=== PATIENT | male | born 1950 | race Caucasian/White ===

== ENCOUNTER 2019-08-05 18:45 | Inpatient (IN) | payer MEDICARE ==
[~2019-08-05] VITALS: Ht 170.2 cm; Wt 77.1 kg
[2019-08-05] MEDS ORDERED: IV NS 0.9% 1,000 ML BAG IV ONE ×2 (19:00→20:00)
[2019-08-05] MEDS ORDERED: ONDANSETRON HCL/PF 4 MG/2 ML VIAL IVP ONE (19:00)
[2019-08-05] MEDS ORDERED: ONDANSETRON HCL/PF 4 MG/2 ML VIAL ONE ×2 (19:07→23:58)
[2019-08-05 19:18] LABS: BASOPHILS # (AUTO) 0.1 /CMM (0.0-0.2); BASOPHILS % (AUTO) 1.2 % (0.0-2.0); EOSINOPHILS % (AUTO) 0.6 % (0.0-6.0); HEMATOCRIT 46 % (39-51); HEMOGLOBIN 15.6 g/dL (13.5-17.5); LYMPHOCYTES # (AUTO) 1.3 /CMM (0.8-4.8); LYMPHOCYTES % (AUTO) 15.5 % (20.0-44.0); MEAN CORPUSCULAR HGB CONC 34 g/dl (31.0-36.0); MEAN CORPUSCULAR VOLUME 89 fL (80-96); MONOCYTES # (AUTO) 0.5 /CMM (0.1-1.30); MONOCYTES % (AUTO) 5.6 % (2.0-12.0); NEUTROPHILS # (AUTO) 6.3 /CMM (1.8-8.9); NEUTROPHILS % (AUTO) 77.1 % (43.0-81.0); PLATELET COUNT (AUTO) 250 /CMM (150-450); RED BLOOD CELL COUNT(AUTO) 5.16 MIL/uL (4.5-6.0); WHITE BLOOD COUNT (AUTO) 8.1 K/uL (4.3-11.0)
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
[2019-08-05] MEDS ORDERED: METOCLOPRAMIDE HCL 10 MG/2 ML VIAL ONE (19:35)
[2019-08-05 19:45] LABS: CALCIUM, SERUM 9.5 mg/dL (8.5-10.1); POTASSIUM 3.1 mmol/L (3.5-5.1)
[2019-08-05 19:50] LABS: ALBUMIN 4.1 g/dL (3.4-5.0); BILIRUBIN,DIRECT 0.2 mg/dL (0.0-0.2); BILIRUBIN,TOTAL 1.1 mg/dL (0.2-1.0); TOTAL PROTEIN, SERUM 7.5 g/dL (6.4-8.2)
[2019-08-05] MEDS ORDERED: METOCLOPRAMIDE HCL 10 MG/2 ML VIAL IV ONE (20:00)
[2019-08-05] MEDS ORDERED: POTASSIUM CHLORIDE 20 MEQ TAB.PRT.SR PO ONE ×2 (20:00→20:02)
--- NOTE | 2019-08-05 20:01 | NUR ---
PT STILL UNABLE TO URINATE AT THIS TIME. AWARE. RECEIVED VERBAL ORDER TO GIVE ANOTHER LITER OF NS X 1. NOTED AND CARRIED OUT.
[2019-08-05] MEDS ORDERED: PROPRANOLOL HCL 1 MG/ML AMPUL IV ONE (20:30)
[2019-08-05] MEDS ORDERED: PROPRANOLOL HCL IV 1 MG/ML VIAL IVP ONE ×2 (20:33→21:00)
--- NOTE | 2019-08-05 22:10 | NUR ---
ATTEMPTED TO DISCHARGE PT BUT PT IS NOTED WITH UNSTEADY GAIT. PT STATED THAT HE FEELS DIZZY. MADE AWARE.
[2019-08-05] MEDS ORDERED: MECLIZINE HCL 25 MG TABLET ONE (22:30)
[2019-08-05] MEDS ORDERED: MECLIZINE HCL 12.5 MG TABLET PO ONE (22:30)
--- NOTE | 2019-08-05 22:52 | NUR ---
PT TO CT ON YOB[facility]
--- NOTE | 2019-08-05 23:41 | NUR ---
PT AMBULATED TO USE THAT BATHROOM. STILL NOTING UNSTEADY GAIT.
[2019-08-06] MEDS ORDERED: ONDANSETRON HCL/PF 4 MG/2 ML VIAL IV ONE
--- NOTE | 2019-08-06 00:19 | NUR ---
report given to aleksandra alcocer for [facility]; pt will be transported to 3rd floor
[2019-08-06 00:40] VITALS: BP 167/90
[2019-08-06] MEDS ORDERED: MAG HYDROX/AL HYDROX/SIMETH 30 ML UDC PO PRN (01:00)
[2019-08-06] MEDS ORDERED: ONDANSETRON HCL/PF 4 MG/2 ML VIAL IVP PRN (01:00)
[2019-08-06] MEDS ORDERED: ZOLPIDEM TARTRATE 5 MG TABLET PO PRN (01:00)
[2019-08-06] MEDS ORDERED: ACETAMINOPHEN 325 MG TABLET PO PRN (01:00)
[2019-08-06] MEDS ORDERED: Z GUARD REMEDY 2 OZ OINT TP PRN (01:00)
[2019-08-06] MEDS ORDERED: HYDROCODONE/APAP 5/325MG 1 EACH TABLET PO PRN (01:00)
[2019-08-06] MEDS ORDERED: MAGNESIUM HYDROXIDE 30 ML UDC PO PRN (01:00)
[2019-08-06] MEDS: IV NS 0.9% 1,000 ML IV PRN ×2 (01:01→11:28)
[2019-08-06 01:14] VITALS: BP 167/90
[2019-08-06] MEDS ORDERED: MECLIZINE HCL 12.5 MG TABLET PO PRN (04:00)
[2019-08-06 07:34] LABS: THYROID STIMULATING HORMONE 0.937 uIU/mL (0.358-3.74)
--- NOTE | 2019-08-06 07:56 | NUR ---
MS RN OPENING NOTES RECEIVED PATIENT IN BED, ASLEEP. PATIENT IS ON ROOM AIR; BREATHING IS EVEN AND UNLABORED. NO SOB PRESENT AT THIS TIME. NO SIGNS OF PAIN SUCH MOANING, FACIAL GRIMACING OR GUARDING NOTED. L HAND IV ACCESS GAUGE # 20 PRESENT AND INTACT; INFUSING NS AT 100 MLS/HR. SAFETY PRECAUTIONS IN PLACE; BED IN LOW POSITION AND LOCKED, RAILS UP X2, CALL LIGHT WITHIN REACH. WILL CONTINUE TO MONITOR PATIENT.
[2019-08-06 08:00] VITALS: BP 168/108
--- NOTE | 2019-08-06 08:30 | NUR ---
MS RN NOTES 08 ORTHOSTATIC HYPOTENSION TAKEN BY WORK ORDER SORTING CLERK: LAYING B/P 168/108 HR: 64 B/P 152/101 HR 72 B/P 151/89 HR 83
[2019-08-06 16:00] VITALS: BP 166/83
[2019-08-06 16:34] LABS: APPEARANCE,URINE CLEAR (CLEAR); BILIRUBIN,URINE NEGATIVE (NEGATIVE); BLOOD, URINE NEGATIVE Ery/uL (NEGATIVE); COLOR,URINE YELLOW (YELLOW); KETONES,URINE 15 (NEGATIVE); LEUKOCYTE ESTERASE ,URINE NEGATIVE (NEGATIVE); NITRITE, URINE NEGATIVE (NEGATIVE); PROTEIN,URINE NEGATIVE (NEGATIVE); UGLUCOSE NEGATIVE (NEGATIVE)
[2019-08-06 17:19] LABS: BACTERIA,URINE None seen /HPF (None Seen); RBC,URINE 0-2 /HPF (0-2); SQUAMOUS EPITHELIAL CELL,UR 0-2 /HPF (None Seen); WBC,URINE 0-2 /HPF (0-3)
--- NOTE | 2019-08-06 18:45 | NUR ---
MS RN CLOSING NOTES PATIENT IN BED, AWAKE, A/O X3; WATCHING TV AT THIS TIME. PATIENT IS ON ROOM AIR; BREATHING IS EVEN AND UNLABORED. NO SOB PRESENT AT THIS TIME. PATIENT DENIES PAIN. WAS COMPLIANT AND PLEASANT THROUGHOUT THE DAY. L HAND IV ACCESS GAUGE # 20 PRESENT AND INTACT; INFUSING NS AT 100 MLS/HR. ALL NEEDS ATTENDED TO. SAFETY PRECAUTIONS REMAIN IN PLACE; BED IN LOW POSITION AND LOCKED, RAILS UP X2, CALL LIGHT WITHIN REACH. WILL ENDORSE TO HEMMER AUTOMATIC NURSE.
[2019-08-06 19:30] VITALS: BP 162/90
--- NOTE | 2019-08-06 19:35 | NUR ---
MS RN NOTES PATIENT IN BED, AWAKE, WATCHING TV. ALERT AND ORIENTED X 4. BREATHING EVEN AND UNLABORED ON ROOM AIR. SHOWS NO SIGNS OF ACUTE RESPIRATORY DISTRESS, NO ACUTE PAIN. IV ON L HAND 20G RUNNING NS AT 100ML/HR. SHOWS NO SIGNS OF INFILTRATION, NO REDNESS. SAFETY PRECAUTIONS IN PLACE. BED IN LOWEST POSITION, LOCKED, AND CALL LIGHT KEPT WITHIN REACH. WILL CONTINUE TO MONITOR.
[2019-08-06 20:00] VITALS: BP 162/90
[2019-08-07] MEDS: IV NS 0.9% 1,000 ML IV PRN (00:40)
--- NOTE | 2019-08-07 00:49 | NUR ---
MS RN NOTES PATIENT REFUSING SKIN ASSESSMENT PICTURES. WILL CONTINUE TO MONITOR.
[2019-08-07 06:27] LABS: BASOPHILS # (AUTO) 0.1 /CMM (0.0-0.2); BASOPHILS % (AUTO) 1.4 % (0.0-2.0); HEMATOCRIT 43 % (39-51); HEMOGLOBIN 14.8 g/dL (13.5-17.5); LYMPHOCYTES # (AUTO) 1.8 /CMM (0.8-4.8); MEAN CORPUSCULAR HGB CONC 34 g/dl (31.0-36.0); MEAN CORPUSCULAR VOLUME 89 fL (80-96); MONOCYTES # (AUTO) 0.5 /CMM (0.1-1.30); MONOCYTES % (AUTO) 9.7 % (2.0-12.0); NEUTROPHILS % (AUTO) 54.9 % (43.0-81.0); PLATELET COUNT (AUTO) 214 /CMM (150-450); WHITE BLOOD COUNT (AUTO) 5.6 K/uL (4.3-11.0)
[2019-08-07 06:29] LABS: CALCIUM, SERUM 7.8 mg/dL (8.5-10.1); CREATININE 0.8 mg/dL (0.6-1.3); MAGNESIUM 1.8 mg/dL (1.8-2.4); PHOSPHORUS 2.1 mg/dL (2.5-4.9); POTASSIUM 3.6 mmol/L (3.5-5.1)
--- NOTE | 2019-08-07 06:36 | NUR ---
MS RN NOTES PATIENT IN BED, ASLEEP, ALERT AND ORIENTED X 4. BREATHING EVEN AND UNLABORED ON ROOM AIR. SHOWS NO SIGNS OF ACUTE RESPIRATORY DISTRESS, NO ACUTE PAIN. IV ON L HAND 20G RUNNING NS AT 100ML/HR. SHOWS NO SIGNS OF INFILTRATION, NO REDNESS. ALL DUE MEDICATIONS GIVEN. SAFETY PRECAUTIONS IN PLACE. BED IN LOWEST POSITION, LOCKED, AND CALL LIGHT KEPT WITHIN REACH. WILL ENDORSE TO ONCOMING NURSE.
--- NOTE | 2019-08-07 07:19 | NUR ---
MS RN OPENING NOTES RECEIVED PATIENT IN BED, AWAKE, A/O X4. PATIENT IS ON ROOM AIR; BREATHING IS EVEN AND UNLABORED; IN NO ACUTE RESPIRATORY DISTRESS. NO COMPLAINS OF PAIN AT THIS TIME. L HAND IV ACCESS GAUGE # 20 PRESENT AND INTACT; INFUSING NS AT 100 MLS/HR. SAFETY PRECAUTIONS IN PLACE; BED IN LOW POSITION AND LOCKED, RAILS UP X2, CALL LIGHT WITHIN REACH. WILL CONTINUE TO MONITOR PATIENT.
[2019-08-07] MEDS ORDERED: IV NS 0.9% 1,000 ML IV PRN (07:35)
[2019-08-07] MEDS: NEUTRA PHOS 1 POWD.PACKET PO SCH ×2 (07:57→15:49)
[2019-08-07 08:00] VITALS: BP 169/89
[2019-08-07] MEDS ORDERED: POTASSIUM CHLORIDE 20 MEQ TAB.PRT.SR PO SCH (08:00)
--- NOTE | 2019-08-07 08:25 | NUR ---
MS RN NOTES ORTHOSTATIC BP: LAYING BP: 169/89 HR 59 SITTING: B/P 169/105 HR 65 STANDIN/105 HR 91
[2019-08-07] MEDS: VALSARTAN 80 MG TABLET PO SCH (08:36)
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
--- NOTE | 2019-08-07 11:40 | NUR ---
MS RN NOTES [facility] [employer] CONTACTED FOR DVT PUMPS. WAITING FOR DELIVERY.
--- NOTE | 2019-08-07 15:00 | NUR ---
MS RN NOTES PATIENT REFUSES DVT PUMP PLACEMENT. HE STATES HE IS ACTIVE, MOVES ENOUGH AND HAS GOOD MUSCLES SO HE WON'T BE FORMING ANY CLOTS.
[2019-08-07 16:00] VITALS: BP 174/102
[2019-08-07] MEDS: hydrALAZINE HCL 10 MG TABLET PO PRN (17:20)
--- NOTE | 2019-08-07 19:01 | NUR ---
MS RN CLOSING NOTES PATIENT IN BED, AWAKE, A/O X4 AND WATCHING TV. PATIENT IS ON ROOM AIR; BREATHING IS EVEN AND UNLABORED; IN NO ACUTE RESPIRATORY DISTRESS. NO COMPLAINS OF PAIN AT THIS TIME. L HAND IV ACCESS GAUGE # 20 PRESENT AND INTACT; INFUSING NS AT 100 MLS/HR. ALL NEEDS ATTENDED TO THROUGHOUT THE DAY. SAFETY PRECAUTIONS REMAIN IN PLACE; BED IN LOW POSITION AND LOCKED, RAILS UP X2, CALL LIGHT WITHIN REACH. WILL ENDORSE TO RETAIL BUSINESS DEVELOPMENT MANAGER NURSE.
[2019-08-07 20:00] VITALS: BP 157/88
--- NOTE | 2019-08-08 01:10 | NUR ---
MS/TELE/RN PATIENT IS SLEEPING, APPEAR COMFORTABLE, NO SIGNS OF DISTRESS NOTED, CALL LIGHT IN REACH. WILL CONTINUE TO MONITOR.
--- NOTE | 2019-08-08 02:01 | NUR ---
MS/TELE/RN IV LEAKING, ATTEMPTED X2, UNSUCCESSFUL, PATIENT REFUSED AT THIS TIME, WANTS IT DONE IN THE MORNING.
--- NOTE | 2019-08-08 06:10 | NUR ---
MS/TELE/RN PATIENT IS AWAKE, ALERT, ORIENTED, COMFORTABLE, NO DISTRESS NOTED, CALL LIGHT IN REACH. ALL NEEDS ATTENDED AT THIS TIME, WILL CONTINUE TO MONITOR.
[2019-08-08 06:18] LABS: BASOPHILS # (AUTO) 0.1 /CMM (0.0-0.2); BASOPHILS % (AUTO) 1.3 % (0.0-2.0); EOSINOPHILS % (AUTO) 2.8 % (0.0-6.0); HEMATOCRIT 47 % (39-51); HEMOGLOBIN 16.1 g/dL (13.5-17.5); LYMPHOCYTES # (AUTO) 1.8 /CMM (0.8-4.8); LYMPHOCYTES % (AUTO) 25.4 % (20.0-44.0); MEAN CORPUSCULAR HGB CONC 34 g/dl (31.0-36.0); MEAN CORPUSCULAR VOLUME 88 fL (80-96); MONOCYTES # (AUTO) 0.6 /CMM (0.1-1.30); MONOCYTES % (AUTO) 8.2 % (2.0-12.0); NEUTROPHILS # (AUTO) 4.4 /CMM (1.8-8.9); NEUTROPHILS % (AUTO) 62.3 % (43.0-81.0); PLATELET COUNT (AUTO) 223 /CMM (150-450); RED BLOOD CELL COUNT(AUTO) 5.34 MIL/uL (4.5-6.0); WHITE BLOOD COUNT (AUTO) 7.1 K/uL (4.3-11.0)
[2019-08-08 06:36] LABS: ALBUMIN 3.5 g/dL (3.4-5.0); BILIRUBIN,TOTAL 0.6 mg/dL (0.2-1.0); CALCIUM, SERUM 8.6 mg/dL (8.5-10.1); CREATININE 0.7 mg/dL (0.6-1.3); PHOSPHORUS 3.7 mg/dL (2.5-4.9); POTASSIUM 4.2 mmol/L (3.5-5.1); TOTAL PROTEIN, SERUM 6.9 g/dL (6.4-8.2)
--- NOTE | 2019-08-08 06:54 | NUR ---
MS/TELE/RN IV WAS SUCCESSFULLY INSERTED BY DORENE MARSHALL RN AT LEFT F/A G 22.
[2019-08-08 08:00] VITALS: BP 156/60
--- NOTE | 2019-08-08 08:00 | NUR ---
received pt. this am alert and oriented x 4.easily agitated.
[2019-08-08] MEDS: VALSARTAN 80 MG TABLET PO SCH (10:08)
[2019-08-08] MEDS ORDERED: VALS160T2 PO (13:49)
[2019-08-08 16:00] VITALS: BP 150/100
[2019-08-08 16:35] VITALS: BP 150/100
[2019-08-08] MEDS: hydrALAZINE HCL 10 MG TABLET PO PRN (16:35)
--- NOTE | 2019-08-08 16:50 | NUR ---
refused to sign all but belonging sheet even homeless waiver would not sign.cab called for pt. which he stated he would pay for.hep lock out. bandage to site.taken to lobby.refused resource info as well.
== END 2019-08-08 16:50 | disposition home or self-care (01) | DRG 641 ==
LOC: ER 18:47 → MED 08-06 00:18 → TELE 08-06 00:41 → MED 08-06 01:02
PROVIDERS: ADMIT Nurse Practitioner Acute Care; ATTEND Nurse Practitioner Acute Care
DX: E86.0 Dehydration (principal); I95.1 Orthostatic hypotension; R42 Dizziness and giddiness; R26.89 Other abnormalities of gait and mobility; I10 Essential (primary) hypertension; Z91.14 Patient's other noncompliance with medication regimen; F12.90 Cannabis use, unspecified, uncomplicated; Z59.0 Homelessness; E87.6 Hypokalemia; E83.39 Other disorders of phosphorus metabolism; R79.89 Other specified abnormal findings of blood chemistry
CPT/HCPCS: 36415; 70450-TC; 80048-TC; 80053-TC; 80061-TC; 80076-TC; 80305; 81000-TC; 83735-TC; 84100-TC; 84443-TC; 85025-TC; 87081-TC; 93307-TC; 97116-TC; 97530-TC; G0378; J1800; J2405; J2765; J7030; J8597

== ENCOUNTER 2022-05-29 17:41 | Inpatient (IN) | payer MEDICARE ==
[~2022-05-29] VITALS: Ht 152.4 cm; Wt 61.2 kg
[~2022-05-29 17:41] MED LIST: VALS160T2 PO
--- NOTE | 2022-05-29 17:45 | NUR ---
BIB [facility] FROM [facility] C/O FEELING SICK AND HAVING DIARRHEA X2 WEEKS, SATTING IN THE 70'S ON 4L NASAL CANULA AND SATTING AT 100%
--- NOTE | 2022-05-29 19:25 | NUR ---
COVID SWAB TAKEN
[2022-05-29] MEDS ORDERED: AZITHROMYCIN 500 MG VIAL ONE (19:30)
[2022-05-29] MEDS ORDERED: CEFTRIAXONE 1GM BAG (ER ONLY) 1 GM/50 ML PIGGYBACK IV ONE (19:30)
[2022-05-29] MEDS ORDERED: CEFTRIAXONE 1GM BAG (ER ONLY) 50 ML IV ONE (19:30)
[2022-05-29] MEDS ORDERED: AZITHROMYCIN 500 MG in IV D5W 250 ML IV ONE (19:30)
[2022-05-29 20:13] LABS: BASOPHILS % (AUTO) 0.4 % (0.0-2.0); EOSINOPHILS % (AUTO) 0.6 % (0.0-6.0); HEMATOCRIT 36 % (39-51); HEMOGLOBIN 11.8 g/dL (13.5-17.5); LYMPHOCYTES # (AUTO) 0.7 K/uL (0.8-4.8); LYMPHOCYTES % (AUTO) 8.7 % (20.0-44.0); MEAN CORPUSCULAR HGB CONC 33 g/dl (31.0-36.0); MEAN CORPUSCULAR VOLUME 88 fL (80-96); MONOCYTES # (AUTO) 0.6 K/uL (0.1-1.30); MONOCYTES % (AUTO) 8.1 % (2.0-12.0); NEUTROPHILS # (AUTO) 6.3 K/uL (1.8-8.9); NEUTROPHILS % (AUTO) 82.2 % (43.0-81.0); PLATELET COUNT (AUTO) 256 K/uL (150-450); RED BLOOD CELL COUNT(AUTO) 4.12 MIL/uL (4.5-6.0); WHITE BLOOD COUNT (AUTO) 7.6 K/uL (4.3-11.0)
[2022-05-29] MEDS ORDERED: hydrALAZINE HCL IV 20 MG VIAL IV PRN (20:30)
[2022-05-29] MEDS ORDERED: ACETAMINOPHEN 325 MG TABLET PO PRN (20:30)
[2022-05-29] MEDS ORDERED: MORPHINE SULFATE INJ 2 MG/ML DISP.SYRIN IV PRN (20:30)
[2022-05-29] MEDS ORDERED: ONDANSETRON HCL/PF 4 MG/2 ML VIAL IVP PRN (20:30)
--- NOTE | 2022-05-29 20:45 | NUR ---
[facility] PAGED
[2022-05-29 21:23] LABS: CALCIUM, SERUM 8.7 mg/dL (8.5-10.1); CARBON DIOXIDE 22 mmol/L (21-32); CHLORIDE 108 mmol/L (98-107); CREATININE 1.1 mg/dL (0.6-1.3); GLUCOSE 123 mg/dL (74-106); POTASSIUM 4.7 mmol/L (3.5-5.1); SODIUM SERUM 141 mmol/L (136-145); UREA NITROGEN, BLOOD 24 mg/dL (7-18)
--- NOTE | 2022-05-29 21:45 | NUR ---
LACTIC ACID 2.1
[2022-05-29] MEDS ORDERED: ALBUTEROL FS 2.5 MG/0.5 ML VIAL.NEB NEB PRN (22:30)
--- NOTE | 2022-05-29 22:51 | NUR ---
O2 SAT 89% ROOM AIR, PT NON COMPLIANT WITH NASAL CANNULA. MD AWARE
--- NOTE | 2022-05-29 23:01 | NUR ---
RM 327-2
[2022-05-29] MEDS ORDERED: CEFEPIME 2 GM in IV D5W 100 ML IV ONE (23:45)
[2022-05-30] MEDS ORDERED: IPRATROPIUM/ALBUTEROL INHALER IH SCH
[2022-05-30 00:07] LABS: ALANINE AMINOTRANSFERASE 60 U/L (12-78); ALKALINE PHOSPHATASE 119 U/L (46-116); ASPARTATE AMINOTRANSFERASE 45 U/L (15-37); BILIRUBIN,DIRECT 0.2 mg/dL (0.0-0.2); BILIRUBIN,TOTAL 0.4 mg/dL (0.2-1.0)
[2022-05-30 00:16] LABS: ALBUMIN 2.9 g/dL (3.4-5.0)
--- NOTE | 2022-05-30 00:30 | NUR ---
REPORT GIVEN TO CECILIA NUNEZ FOR SRINIVASAN
--- NOTE | 2022-05-30 02:00 | NUR ---
SOLAR ENERGY SYSTEM INSTALLERCIVIL ENGINEERING DESIGN DRAFTSPERSON NOTES RECEIVED REPORT FROM NURSE BALAJI AROUND 00:25. PATIENT WAS TRANSFERRED FROM ER VIA GURNEY. ORIENTED PATIENT TO ROOM SET UP AND EDUCATED PATIENT ON THE USE OF CALL LIGHT. V/S TAKEN AND RECORDED. SKIN ASSESSMENT DONE. ALL BELONGINGS CHECKED AND BELONGING'S LIST SIGNED. A/O X 2-3. ON 3-4L OXYGEN VIA NC. IV ACCESS R HAND, FLUSHING WELL. SAFETY PRECAUTIONS GIVEN WITH BED ON LOWEST AND LOCK POSITION. SIDE RAILS UP X 2. BED ALARM ON. CALL LIGHT WITHIN EASY REACH. WILL CONTINUE TO MONITOR PATIENT.
[2022-05-30] MEDS: APIXABAN 5 MG TABLET PO SCH ×2 (04:33→08:10)
[2022-05-30] MEDS: METOPROLOL TARTRATE 25 MG TABLET PO SCH ×3 (04:34→21:21)
[2022-05-30] MEDS ORDERED: CEFEPIME 1 GM VIAL ONE ×2 (04:51)
[2022-05-30 06:38] LABS: BASOPHILS % (AUTO) 0.3 % (0.0-2.0); EOSINOPHILS % (AUTO) 0.1 % (0.0-6.0); HEMATOCRIT 41 % (39-51); HEMOGLOBIN 13.1 g/dL (13.5-17.5); LYMPHOCYTES # (AUTO) 0.7 K/uL (0.8-4.8); LYMPHOCYTES % (AUTO) 8.5 % (20.0-44.0); MEAN CORPUSCULAR HGB CONC 32 g/dl (31.0-36.0); MEAN CORPUSCULAR VOLUME 89 fL (80-96); MONOCYTES # (AUTO) 0.8 K/uL (0.1-1.30); MONOCYTES % (AUTO) 10.1 % (2.0-12.0); NEUTROPHILS # (AUTO) 6.4 K/uL (1.8-8.9); PLATELET COUNT (AUTO) 261 K/uL (150-450); RED BLOOD CELL COUNT(AUTO) 4.61 MIL/uL (4.5-6.0); WHITE BLOOD COUNT (AUTO) 7.9 K/uL (4.3-11.0)
[2022-05-30 07:11] LABS: BILIRUBIN,TOTAL 0.7 mg/dL (0.2-1.0); CALCIUM, SERUM 8.8 mg/dL (8.5-10.1); CREATININE 1.3 mg/dL (0.6-1.3); MAGNESIUM 2.3 mg/dL (1.8-2.4); PHOSPHORUS 4.6 mg/dL (2.5-4.9); TOTAL PROTEIN, SERUM 6.3 g/dL (6.4-8.2)
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
[2022-05-30 08:00] VITALS: BP 88/47
--- NOTE | 2022-05-30 08:05 | NUR ---
TRAFFIC REPORTER CLOSING NOTES PATIENT SLEEPING IN BED. PATIENT IS RESTLESS AND MOVE IN AND OUT OF THE BED. REFUSED TO WEAR DIRECTOR OF PRODUCT DESIGN. A/O X 2-3. ON 3-4L OXYGEN VIA NC BUT KEEPS ON REMOVING IT. IV ACCESS R HAND, FLUSHING WELL. SAFETY PRECAUTIONS GIVEN WITH BED ON LOWEST AND LOCK POSITION. SIDE RAILS UP X 2. BED ALARM ON. CALL LIGHT WITHIN EASY REACH. WILL ENDORSE TO THE NEXT SHIFT.
[2022-05-30] MEDS ORDERED: VALSARTAN 80 MG TABLET PO SCH (09:00)
[2022-05-30] MEDS: ALBUTEROL FS 2.5 MG/0.5 ML VIAL.NEB NEB SCH ×3 (09:01→20:18)
[2022-05-30] MEDS: IPRATROPIUM NEB FS 0.5 MG/2.5 ML AMPUL.NEB IH SCH ×3 (09:01→20:18)
[2022-05-30] MEDS: ENOXAPARIN SODIUM 40 MG/0.4 ML DISP.SYRIN SQ SCH (10:00)
[2022-05-30 10:37] LABS: MAGNESIUM 2.3 mg/dL (1.8-2.4); PHOSPHORUS 4.6 mg/dL (2.5-4.9)
[2022-05-30 11:05] LABS: THYROID STIMULATING HORMONE 1.379 uIU/mL (0.358-3.74)
[2022-05-30] MEDS: CEFEPIME 2 GM in IV D5W 100 ML IV SCH (15:24)
[2022-05-30 16:00] VITALS: BP 135/77
--- NOTE | 2022-05-30 17:46 | NUR ---
RN MS NOTES PT WITH EPISODES OF NONCOMPLIANCE WITH O2 USE, KEPT REMINDING PT TO USE O2 BUT KEPT REMOVING IT, PT ALSO HAS OCCASIONAL COUGH, DR. ESCOBAR INFORMED, ORDERS GIVEN, NOTED AND CARRIED OUT.
[2022-05-30] MEDS: GUAIFENESIN 300 MG/15 ML UDC PO PRN (18:01)
--- NOTE | 2022-05-30 18:09 | NUR ---
RN MS NOTES PT SITTING IN BED, EATING DINNER, ON O2 AT 4LPM VIA N/C, O2 SAT OF 94%, PT EDUCATION PROVIDED REGARDING O2 USE, AGREES TO USE O2 BUT TENDS TO FORGET AND REMOVES IT AGAIN, ABLE TO TRANSFER TO BEDSIDE COMMODE NEEDED, BLANKETS PROVIDED FOR COMFORT, ROBITUSSIN GIVEN ORDERED, KEPT LANGUAGE PATH BED.
--- NOTE | 2022-05-30 19:30 | NUR ---
noc rn opening note received patient in bed comfortably sleeping, easy to arouse. no s/s of apparent distress on 4lpm of o2 via nc. no c/o pain at this time. L.wrist #20 g on saline lock, no fluids running. safety in place-- bed in lowest, locked position, call light within reach, side rails up X2. will continue with the plan of care for patient.
[2022-05-30 20:00] VITALS: BP 142/70
[2022-05-31] MEDS: IPRATROPIUM NEB FS 0.5 MG/2.5 ML AMPUL.NEB IH SCH ×4 (02:08→20:27)
[2022-05-31] MEDS: ALBUTEROL FS 2.5 MG/0.5 ML VIAL.NEB NEB SCH ×4 (02:08→20:27)
[2022-05-31] MEDS: CEFEPIME 2 GM in IV D5W 100 ML IV SCH ×2 (04:23→16:00)
[2022-05-31] MEDS: GUAIFENESIN 300 MG/15 ML UDC PO PRN (05:24)
--- NOTE | 2022-05-31 05:25 | NUR ---
noc rn note Given Robitussin as ordered PRN for cough.
[2022-05-31 06:22] LABS: BASOPHILS % (AUTO) 0.1 % (0.0-2.0); HEMATOCRIT 41 % (39-51); HEMOGLOBIN 12.9 g/dL (13.5-17.5); LYMPHOCYTES # (AUTO) 0.6 K/uL (0.8-4.8); LYMPHOCYTES % (AUTO) 7.5 % (20.0-44.0); MEAN CORPUSCULAR HGB CONC 32 g/dl (31.0-36.0); MEAN CORPUSCULAR VOLUME 89 fL (80-96); MONOCYTES # (AUTO) 0.6 K/uL (0.1-1.30); MONOCYTES % (AUTO) 7.6 % (2.0-12.0); NEUTROPHILS % (AUTO) 84.8 % (43.0-81.0); PLATELET COUNT (AUTO) 263 K/uL (150-450); RED BLOOD CELL COUNT(AUTO) 4.57 MIL/uL (4.5-6.0); WHITE BLOOD COUNT (AUTO) 8.3 K/uL (4.3-11.0)
[2022-05-31 06:50] LABS: CALCIUM, SERUM 8.8 mg/dL (8.5-10.1); CARBON DIOXIDE 19 mmol/L (21-32); CHLORIDE 103 mmol/L (98-107); CREATININE 1.4 mg/dL (0.6-1.3); GLUCOSE 131 mg/dL (74-106); MAGNESIUM 2.4 mg/dL (1.8-2.4); PHOSPHORUS 5.4 mg/dL (2.5-4.9); POTASSIUM 4.9 mmol/L (3.5-5.1); SODIUM SERUM 134 mmol/L (136-145); UREA NITROGEN, BLOOD 38 mg/dL (7-18)
--- NOTE | 2022-05-31 07:29 | NUR ---
noc rn closing note needs attended. Report given to Pepe, for continuity of patient care.
[2022-05-31 08:00] VITALS: BP 139/91
--- NOTE | 2022-05-31 08:30 | NUR ---
PT RECEIVED SITTING ON BEDSIDE COMMODE.. NO S/S OR C/O PAIN OR DISTRESS NOTED. SIDE RAILS UP X2, CALL LIGHT LEFT WITHIN REACH. WILL CONTINUE PLAN OF CARE.
[2022-05-31] MEDS: METOPROLOL TARTRATE 25 MG TABLET PO SCH ×2 (09:00→21:59)
[2022-05-31] MEDS: SPIRONOLACTONE 25 MG TABLET PO SCH (09:00)
[2022-05-31] MEDS: ASPIRIN 81 MG TAB.CHEW PO SCH (09:19)
[2022-05-31] MEDS: ENOXAPARIN SODIUM 40 MG/0.4 ML DISP.SYRIN SQ SCH (09:23)
[2022-05-31] MEDS ORDERED: ASPI-1169 PO (11:58)
[2022-05-31] MEDS ORDERED: SPIR25TA6 PO (11:58)
[2022-05-31] MEDS ORDERED: METO25TA20 PO (11:58)
[2022-05-31 16:00] VITALS: BP 133/103
--- NOTE | 2022-05-31 18:00 | NUR ---
PT REFUSED MEDS NURSING TEACHING PERFORMED TO EXPLAIN IMPORTANCE OF MEDICATIONS BUT PATIENT CONTINUES TO REFUSE. MD NOTIFIED. WILL CONTINUE TO MONITOR.
--- NOTE | 2022-05-31 18:13 | NUR ---
CHANGE OF SHIFT REPORT PT RESTING COMFORTABLY IN BED. NO S/S OR C/O PAIN OR DISTRESS NOTED. SIDE RAILS UP X2, CALL LIGHT LEFT WITHIN REACH. PT KEPT CLEAN, DRY, AND COMFORTABLE. NO SIGNIFICANT CHANGES FROM PREVIOUS SHIFT. WILL GIVE REPORT TO PILY NUNEZ.
--- NOTE | 2022-05-31 19:46 | NUR ---
MS SANITARY AIDE INITIAL NOTES SEEN PT IN BED RESTING WITH EYES CLOSED, RESPIRATION EVEN AND NON-LABORED, AROUSABLE TO HIS NAME , DENIES ANY PAIN OR ANY DISCOMFORT. HIS FOOD TRAY STILL AT THE BEDSIDE AND PATIENT TOLD NOT TO REMOVED BECAUSE HE WILL EAT LATER. ENCOURAGE HIM TO USE THE CALL LIGHT SYSTEM IF HE NEEDS THE NURSE OR NEEDS SOME HELP. PT CALMED AT THIS TIME AND UNDERSTOOD . KEPT HIM WARM AND COMFORTABLE AT ALL TIMES. PLACE CALL LIGHT AT REACH WILL CONTINUE MONITORING.
[2022-05-31 20:20] VITALS: BP 148/97
--- NOTE | 2022-05-31 22:02 | NUR ---
MS INTERVENTION SPECIALIST NOTES CHECKED PT AND FOUND OUT HIS IV LINE OUT , I ASKED HIM THAT I NEED TO RE-INSERT A NEW LINE AT THE SAME TIME I EXPLAINED TO HIM WHY HE NEEDS IT , BUT PT REFUSED TO RE-INSERT. HE STATES THAT HE'S LEAVING [facility]. CHARGE NURSE ALSO AWARE . WILL CONTINUE MONITORING.
[2022-06-01] MEDS: ALBUTEROL FS 2.5 MG/0.5 ML VIAL.NEB NEB SCH ×4 (01:22→20:04)
[2022-06-01] MEDS: IPRATROPIUM NEB FS 0.5 MG/2.5 ML AMPUL.NEB IH SCH ×4 (01:22→20:04)
[2022-06-01] MEDS: CEFEPIME 2 GM in IV D5W 100 ML IV SCH ×2 (04:00→15:08)
--- NOTE | 2022-06-01 04:48 | NUR ---
MS PROCESS CONTROL OPERATOR NOTES PT REFUSED TO RE-INSERT THE IV LINE AND AT THE SAME TIME REFUSED THE ANTIBIOTIC. CHARGE NURSE AWARE.
--- NOTE | 2022-06-01 05:14 | NUR ---
MS FLIGHT ENGINEER HELICOPTER NOTES PT WHEEZING AND SOB NOTED. BREATHING TREATMENT ADMINISTERED BY RT ORDERED. KEPT HIM ON SEMI FOWLERS POSITION FOR COMFORT.
[2022-06-01 06:16] LABS: BASOPHILS % (AUTO) 0.1 % (0.0-2.0); HEMATOCRIT 41 % (39-51); HEMOGLOBIN 12.8 g/dL (13.5-17.5); LYMPHOCYTES # (AUTO) 0.7 K/uL (0.8-4.8); LYMPHOCYTES % (AUTO) 8.4 % (20.0-44.0); MEAN CORPUSCULAR HGB CONC 32 g/dl (31.0-36.0); MEAN CORPUSCULAR VOLUME 89 fL (80-96); MONOCYTES # (AUTO) 0.9 K/uL (0.1-1.30); MONOCYTES % (AUTO) 11.3 % (2.0-12.0); NEUTROPHILS # (AUTO) 6.7 K/uL (1.8-8.9); NEUTROPHILS % (AUTO) 80.2 % (43.0-81.0); PLATELET COUNT (AUTO) 285 K/uL (150-450); RED BLOOD CELL COUNT(AUTO) 4.55 MIL/uL (4.5-6.0); WHITE BLOOD COUNT (AUTO) 8.4 K/uL (4.3-11.0)
[2022-06-01 06:29] LABS: CALCIUM, SERUM 8.6 mg/dL (8.5-10.1); CREATININE 1.2 mg/dL (0.6-1.3); MAGNESIUM 2.4 mg/dL (1.8-2.4); PHOSPHORUS 4.2 mg/dL (2.5-4.9); POTASSIUM 4.6 mmol/L (3.5-5.1)
--- NOTE | 2022-06-01 06:34 | NUR ---
MS TOP SPOTTER CLOSING NOTES PT RESTING AT THIS TIME AFTER BREATHING TREATMENT RENDERED. MORNING CARE ALSO DONE WITH THE HELPED OF WHITEWATER RAFTING GUIDE . KEPT HIM WARM AND COMFORTABLE AT ALL TIMES. STILL WITH O2 AT 2 LITERS VIA NASAL CANULA. BED IN LOW AND LOCK IN POSITION WITH SIDE RAILS X2 UP . PLACE CALL LIGHT AT REACH. WILL ENDORSE TO AM NURSE FOR CONTINUITY OF CARE.
--- NOTE | 2022-06-01 07:00 | NUR ---
MS RN OPENING NOTES: RECEIVED PATIENT IN BED, AWAKE ON HIGH FOWLERS POSITION. PT ALERT AND ORIENTED X 2 AND ABLE TO MAKE NEEDS KNOWN, WITH EPISODES OF FORGETFULNESS AND CONFUSION. PT REMOVING O2 INHALATION, O2 @3LPM VIA NASAL CANNULA. PT HAD EPISODES OF COUGHING AND UNABLE TO EXPECTORATE PHLEGM. IV ACCESS REFUSED REINSERTION. SAFETY MEASURES MAINTAINED: BED LOCKED AND IN LOWEST POSITION, SIDE RAILS UP X 2, CALL LIGHT IN EASY REACH AND WILL MONITOR PT ACCORDINGLY.
[2022-06-01] MEDS: ASPIRIN 81 MG TAB.CHEW PO SCH (08:07)
[2022-06-01 08:15] VITALS: BP 160/116
[2022-06-01] MEDS: SPIRONOLACTONE 25 MG TABLET PO SCH (09:00)
[2022-06-01] MEDS: METOPROLOL TARTRATE 25 MG TABLET PO SCH ×3 (09:00→21:00)
[2022-06-01] MEDS: ENOXAPARIN SODIUM 40 MG/0.4 ML DISP.SYRIN SQ SCH (09:03)
--- NOTE | 2022-06-01 09:03 | NUR ---
RN NOTES: PATIENT REFUSED BP MED.
[2022-06-01] MEDS ORDERED: HALOPERIDOL LACTATE INJ 5 MG/ML VIAL IM PRN (15:30)
[2022-06-01 16:00] VITALS: BP 156/98
--- NOTE | 2022-06-01 16:38 | NUR ---
SS consult requested for homelessness over the weekend. SW will see pt. at a later time.
[2022-06-01] MEDS: HALOPERIDOL 5 MG TABLET PO SCH ×3 (17:11→21:50)
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
--- NOTE | 2022-06-01 19:45 | NUR ---
MS RN NOTES RECEIVED INSIDE HIS ROOM,SITTING ON BED,A/O X1-2,BREATHING NON LABORED,O2 IN USED AT 3L/NC TO KEEP O2 SAT ABOVE 90%.NO IV ACCESS,PATIENT REFUSED,WILL CONTINUE TO MONITOR STATUS.CALL LIGHT IN REACH,NEEDS ANTICIPATED.
[2022-06-01 20:00] VITALS: BP 127/98
--- NOTE | 2022-06-01 21:00 | NUR ---
MS RN NOTES OFFERED SCHEDULED LOPRESSOR 25MG PO REFUSED.EXPLAINED RISK AND BENEFITS, COMMENTED I DONT NEED IT 19/10.
--- NOTE | 2022-06-01 21:53 | NUR ---
MS RN NOTES OFFERED HIS HALDOL 2.5GM PO BUT REFUSED,COMMENTED I'M OKAY.
[2022-06-02] MEDS: ALBUTEROL FS 2.5 MG/0.5 ML VIAL.NEB NEB SCH ×3 (01:37→13:30)
[2022-06-02] MEDS: IPRATROPIUM NEB FS 0.5 MG/2.5 ML AMPUL.NEB IH SCH ×3 (01:37→13:30)
[2022-06-02] MEDS: CEFEPIME 2 GM in IV D5W 100 ML IV SCH (03:32)
--- NOTE | 2022-06-02 03:32 | NUR ---
MS RN NOTES OOB TO BEDSIDE COMMODE THIS TIME.
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
--- NOTE | 2022-06-02 07:10 | NUR ---
MS RN NOTES RECEIVED PATIENT STILL SLEEPING IN BED FAIRLY RESTED BUT EASILY AWAKENED. SPEAKING LOUDLY AND ASKING FOR HIS BREAKFAST. RN EXPLAINED SCHEDULED BREAKFAST DELIVERY SOON COMING. SAFETY PROTOCOLS IN PLACE, WILL CONTINUE TO MONITOR.
--- NOTE | 2022-06-02 08:02 | NUR ---
PATIENT HAS BEEN UNCOOPERATIVE AND REFUSED HIS PRESCRIBED MEDICATIONS.
[2022-06-02 08:41] VITALS: BP 127/98
[2022-06-02] MEDS: HALOPERIDOL 5 MG TABLET PO SCH (08:41)
[2022-06-02] MEDS: ASPIRIN 81 MG TAB.CHEW PO SCH (08:41)
[2022-06-02] MEDS: METOPROLOL TARTRATE 25 MG TABLET PO SCH (08:41)
[2022-06-02] MEDS: SPIRONOLACTONE 25 MG TABLET PO SCH (08:41)
[2022-06-02] MEDS: ENOXAPARIN SODIUM 40 MG/0.4 ML DISP.SYRIN SQ SCH (10:00)
[2022-06-02 10:18] LABS: BASOPHILS % (AUTO) 0.2 % (0.0-2.0); EOSINOPHILS % (AUTO) 0.4 % (0.0-6.0); HEMATOCRIT 42 % (39-51); HEMOGLOBIN 13.1 g/dL (13.5-17.5); LYMPHOCYTES # (AUTO) 0.9 K/uL (0.8-4.8); LYMPHOCYTES % (AUTO) 11.1 % (20.0-44.0); MEAN CORPUSCULAR HGB CONC 32 g/dl (31.0-36.0); MEAN CORPUSCULAR VOLUME 89 fL (80-96); MONOCYTES # (AUTO) 0.9 K/uL (0.1-1.30); MONOCYTES % (AUTO) 10.3 % (2.0-12.0); NEUTROPHILS # (AUTO) 6.5 K/uL (1.8-8.9); PLATELET COUNT (AUTO) 282 K/uL (150-450); RED BLOOD CELL COUNT(AUTO) 4.68 MIL/uL (4.5-6.0); WHITE BLOOD COUNT (AUTO) 8.4 K/uL (4.3-11.0)
[2022-06-02 10:39] LABS: CALCIUM, SERUM 8.5 mg/dL (8.5-10.1); CREATININE 1.1 mg/dL (0.6-1.3); MAGNESIUM 2.2 mg/dL (1.8-2.4); PHOSPHORUS 3.2 mg/dL (2.5-4.9); POTASSIUM 4.2 mmol/L (3.5-5.1)
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
--- NOTE | 2022-06-02 12:05 | NUR ---
SS attempted to follow up with SS Consult however, pt. left AMA.
== END 2022-06-02 15:56 | disposition left against medical advice (07) | DRG 194 ==
LOC: ER 17:55 → TELE 23:26 → MED 05-30 10:19
PROVIDERS: ADMIT Internal Medicine; ATTEND Nurse Practitioner Acute Care
DX: J15.9 Unspecified bacterial pneumonia (principal); D68.59 Other primary thrombophilia; E87.20 Acidosis, unspecified; I42.9 Cardiomyopathy, unspecified; J98.11 Atelectasis; E86.0 Dehydration; I48.91 Unspecified atrial fibrillation; Z20.822 Contact with and (suspected) exposure to COVID-19; Z91.199 Patient's noncompliance with other medical treatment and regimen due to unspecified reason; Z89.022 Acquired absence of left finger(s); Z79.899 Other long term (current) drug therapy; Z59.00 Homelessness unspecified; D64.9 Anemia, unspecified; Z86.718 Personal history of other venous thrombosis and embolism; Z86.711 Personal history of pulmonary embolism; R19.7 Diarrhea, unspecified; Z91.81 History of falling; I34.0 Nonrheumatic mitral (valve) insufficiency; F29 Unspecified psychosis not due to a substance or known physiological condition; Z87.81 Personal history of (healed) traumatic fracture; R09.02 Hypoxemia; I10 Essential (primary) hypertension
CPT/HCPCS: 36415; 71045-TC; 73030-TC; 80048-TC; 80053-TC; 80061-TC; 80076-TC; 82962-TC; 83605-TC; 83735-TC; 83880; 84100-TC; 84439-TC; 84443-TC; 84484-TC; 85025-TC; 87081-TC; 93307-TC; 93970-TC; 94799-TC; 97116-TC; 97530-TC; A4223; C9803; G0378; J0456; J0692; J0696; J1650; J7050; J7060